=== PATIENT | male | born 1945 | race Caucasian/White ===

== ENCOUNTER → 2019-05-30 | Outpatient (CLI) | payer MEDICARE ==
[~2019-05-30] MED LIST: REGADENOSON 0.4 MG/5 ML SYRINGE ONE
== END | disposition home or self-care (01) ==
LOC: CFH 07:10
PROVIDERS: ATTEND Internal Medicine
DX: I35.8 Other nonrheumatic aortic valve disorders (principal); I25.9 Chronic ischemic heart disease, unspecified; R07.9 Chest pain, unspecified; R00.2 Palpitations; I10 Essential (primary) hypertension
CPT/HCPCS: 78452; 93017; 93306; A9502; J2785

== ENCOUNTER → 2019-08-15 | Outpatient (CLI) | payer MEDICARE ==
[~2019-08-15] MED LIST changes: +AMLO10TA8 PO; +ASPI-496 PO; +BENA20TA54 PO; +GINK120T3 PO; +LACT1CAP40 PO; +LEVO150T PO; +METO25TA91 PO; +PANT40TA5 PO; +PSYL174P2 PO; -REGADENOSON 0.4 MG/5 ML SYRINGE ONE; +SIMV40TA20 PO
== END | disposition home or self-care (01) ==
LOC: STAR 08:00
PROVIDERS: ATTEND Surgery
DX: Z11.59 Encounter for screening for other viral diseases (principal)
CPT/HCPCS: 36415; 87635

== ENCOUNTER → 2019-08-21 | Outpatient (CLI) | payer MEDICARE ==
[~2019-08-21] VITALS: Ht 162.6 cm; Wt 63.4 kg
[~2019-08-21] MED LIST changes: +ACETAMINOPHEN 500 MG TABLET ONE; +ACETAMINOPHEN 500 MG TABLET PO ONE; +BUPIVACAINE/PF 0.5% ONE; +CHLORHEXIDINE 15 ML UDC MM ONE; +CHLORHEXIDINE 15 ML UDC ONE; +GABAPENTIN 300 MG CAPSULE ONE; +GABAPENTIN 300 MG CAPSULE PO ONE; +INDOCYANINE GREEN 25 MG VIAL ONE; +LACTATED RINGERS 1,000 ML IV SCH
[2019-08-21 09:59] VITALS: BP 134/81
[2019-08-21 10:26] LABS: BASOPHILS # (AUTO) 0.02 x10^3/uL (0-0.1); BASOPHILS % (AUTO) 0 % (0-1); EOSINOPHILS # (AUTO) 0.06 x10^3/uL (0-0.4); EOSINOPHILS % (AUTO) 1 % (1-7); LYMPHOCYTES # (AUTO) 1.44 x10^3/uL (1-3.4); LYMPHOCYTES % (AUTO) 22 % (22-44); MD NO; MEAN CORPUSCULAR HEMOGLOBIN 32.8 pg (27.5-34.5); MEAN CORPUSCULAR HGB CONC 33.5 g/dL (33.2-36.2); MEAN CORPUSCULAR VOLUME 97.8 fL (81-97); MEAN PLATELET VOLUME 7.5 fL (7.4-10.4); MONOCYTES # (AUTO) 0.46 x10^3/uL (0.2-0.8); MONOCYTES % (AUTO) 7 % (2-9); NEUTROPHILS # (AUTO) 4.52 x10^3/uL (1.8-6.8); NEUTROPHILS % (AUTO) 70 % (42-75); PLATELET COUNT 261 x10^3/uL (130-400); RED BLOOD COUNT 4.82 x10^6/uL (4.38-5.82); RED CELL DISTRIBUTION WIDTH 12.6 % (9.4-14.8)
[2019-08-21 10:34] LABS: ALANINE AMINOTRANSFERASE 89 U/L (12-78); ALBUMIN 4.5 g/dL (3.4-5.0); ANION GAP 7 mmol/L (5-15); CHLORIDE 104 mmol/L (98-107); CREATININE 1.21 mg/dL (0.7-1.3)
[2019-08-21 10:37] LABS: ALKALINE PHOSPHATASE 87 U/L (45-117); BILIRUBIN,TOTAL 0.6 mg/dL (0.2-1.0); TOTAL PROTEIN 8.3 g/dL (6.4-8.2)
== END | disposition home or self-care (01) ==
LOC: OUT 09:21 → SDC 09:21 → ORIP 09:21 → UNDOADMIN 09:21 → EDSTATUS 11:30 → SDC 12:00
PROVIDERS: ATTEND Surgery
DX: K57.32 Diverticulitis of large intestine without perforation or abscess without bleeding (principal); Z53.8 Procedure and treatment not carried out for other reasons; K21.9 Gastro-esophageal reflux disease without esophagitis; I10 Essential (primary) hypertension; E03.9 Hypothyroidism, unspecified; Z88.0 Allergy status to penicillin; Z98.890 Other specified postprocedural states; Z88.8 Allergy status to other drugs, medicaments and biological substances; Z79.82 Long term (current) use of aspirin; Z79.899 Other long term (current) drug therapy; Z87.891 Personal history of nicotine dependence
CPT/HCPCS: 36415; 80053; 85025; 86850; 86900; 87635; J7120

== ENCOUNTER 2020-04-23 11:00 | Day surgery (SDC) | payer MEDICARE ==
[~2020-04-23] VITALS: Ht 162.6 cm; Wt 65.9 kg
[~2020-04-23 11:00] MED LIST changes: -ACETAMINOPHEN 500 MG TABLET ONE; -ACETAMINOPHEN 500 MG TABLET PO ONE; +AMLO-211 PO; -AMLO10TA8 PO; -BUPIVACAINE/PF 0.5% ONE; -CHLORHEXIDINE 15 ML UDC MM ONE; -CHLORHEXIDINE 15 ML UDC ONE; -GABAPENTIN 300 MG CAPSULE ONE; -GABAPENTIN 300 MG CAPSULE PO ONE; -INDOCYANINE GREEN 25 MG VIAL ONE; -LACTATED RINGERS 1,000 ML IV SCH; -PANT40TA5 PO; +PANT40TA6 PO
[2020-04-23] MEDS ORDERED: SODIUM CHLORIDE 0.9% 1,000 ML IV SCH ×2 (11:30→16:00)
[2020-04-23] MEDS ORDERED: ASPIRIN 325 MG TABLET EC PO ONE (11:30)
[2020-04-23] MEDS ORDERED: PLEASE ENTER HEIGHT AND WEIGHT MC SCH (11:30)
[2020-04-23 11:32] VITALS: BP 144/77
[2020-04-23] MEDS ORDERED: ACYC5CRE2 TP (11:55)
[2020-04-23] MEDS ORDERED: TEST1.25 TP (11:55)
[2020-04-23] MEDS ORDERED: NITR0.6T4 SL (11:55)
[2020-04-23] MEDS ORDERED: MULT1TAB57 PO (11:55)
[2020-04-23 12:00] LABS: ANION GAP 7 mmol/L (5-15); CALCIUM 9.2 mg/dL (8.5-10.1); CHLORIDE 107 mmol/L (98-107); CREATININE 1.09 mg/dL (0.7-1.3)
[2020-04-23 12:02] LABS: BASOPHILS % (AUTO) 1 % (0-1); EOSINOPHILS % (AUTO) 1 % (1-7); LYMPHOCYTES % (AUTO) 28 % (22-44); MEAN CORPUSCULAR HEMOGLOBIN 33.9 pg (27.5-34.5); MEAN CORPUSCULAR HGB CONC 35.2 g/dL (33.2-36.2); MEAN PLATELET VOLUME 7.5 fL (7.4-10.4); MONOCYTES % (AUTO) 8 % (2-9); NEUTROPHILS % (AUTO) 63 % (42-75); PLATELET COUNT 233 x10^3/uL (130-400); RED BLOOD COUNT 4.39 x10^6/uL (4.38-5.82)
[2020-04-23 12:04] LABS: MD NO
[2020-04-23] MEDS ORDERED: FENTANYL PF 100 MCG/2ML ONE (14:37)
[2020-04-23] MEDS ORDERED: MIDAZOLAM 1 MG/ML, 5ML ONE (14:37)
[2020-04-23] MEDS ORDERED: HEPARIN 1,000 UNITS/ML, 10ML ONE (14:37)
[2020-04-23] MEDS ORDERED: LIDOCAINE-MPF 1%, 5ML ONE (14:37)
[2020-04-23] MEDS ORDERED: VERAPAMIL 2.5 MG/ML, 2ML ONE (14:37)
[2020-04-23] MEDS ORDERED: BIVALIRUDIN 250 MG ONE (15:18)
[2020-04-23] MEDS ORDERED: TICAGRELOR 90 MG TABLET ONE (15:18)
== END 2020-04-23 19:15 | disposition home or self-care (01) ==
LOC: CACL 11:00 → 5SO 16:38 → CACL 19:15
PROVIDERS: ATTEND Internal Medicine Cardiovascular Disease
DX: R07.9 Chest pain, unspecified (principal); I25.110 Atherosclerotic heart disease of native coronary artery with unstable angina pectoris; I10 Essential (primary) hypertension; E78.5 Hyperlipidemia, unspecified; E03.9 Hypothyroidism, unspecified; Z79.82 Long term (current) use of aspirin; Z79.890 Hormone replacement therapy; Z79.899 Other long term (current) drug therapy; Z88.0 Allergy status to penicillin; Z98.890 Other specified postprocedural states
CPT/HCPCS: 36415; 80048; 85025; 92920; 93458; 99156; 99157; C1725; C1769; C1887; C1894; J0583; J1644; J2250; J3010; Q9967; G0378